=== PATIENT | male | born 1990 | race African-American/Black ===

== ENCOUNTER 2018-04-07 17:02 | Emergency (ER) | payer SELFPAY ==
[~2018-04-07] VITALS: Ht 175.3 cm; Wt 86.4 kg
[~2018-04-07 17:02] MED LIST: AMOXICILLIN 50500 MG PO; AMOXICILLIN875 MG PO; LORTAB 5/500 501 TAB PO; NAPROSYN500 MG PO; NO HOME MEDICATIONS
[2018-04-07 17:04] VITALS: BP 145/72; TEMP 98
[2018-04-07] MEDS ORDERED: AMOXICILLIN 50500 MG PO (18:25)
[2018-04-07] MEDS ORDERED: ULTRAM 50MG TAB50 MG PO (18:25)
[2018-04-07 18:40] VITALS: PULSE 72
== END 2018-04-07 18:46 | disposition home or self-care (01) ==
LOC: COL.ER 17:02
DX: K02.9 Dental caries, unspecified (principal); F17.210 Nicotine dependence, cigarettes, uncomplicated; F12.90 Cannabis use, unspecified, uncomplicated

== ENCOUNTER 2019-07-07 05:11 | Emergency (ER) | payer SELFPAY ==
[~2019-07-07] VITALS: Ht 177.8 cm; Wt 76.4 kg
[~2019-07-07 05:11] MED LIST changes: +ULTRAM 50MG TAB50 MG PO
[2019-07-07] MEDS ORDERED: AMOXICILLIN875 MG PO (05:47)
[2019-07-07 06:00] VITALS: BP 120/70; PULSE 88; TEMP 97.1
== END 2019-07-07 06:00 | disposition home or self-care (01) ==
LOC: COL.ER 05:11
DX: R68.84 Jaw pain (principal)